=== PATIENT | female | born 1985 | race Caucasian/White ===

== ENCOUNTER 2019-02-27 13:13 | Emergency (ER) | payer OTHER ==
[2019-02-27] MEDS ORDERED: Promethazine HCl 25 MG/ML VIAL ONE (13:41)
[2019-02-27] MEDS ORDERED: Ketorolac Tromethamine 30 MG/ML VIAL ONE (13:41)
[2019-02-27] MEDS ORDERED: Sodium Chloride 0.9% 1,000 ML ONE (13:41)
[2019-02-27] MEDS ORDERED: Meclizine HCl 25 MG TAB ONE (13:41)
--- NOTE | 2019-02-27 13:53 | CT ---
CT BRAIN WITHOUT CONTRAST: HISTORY: Headache, dizziness FINDINGS: No evidence of acute infarct, hemorrhage, midline shift or abnormal extra-axial fluid collections is seen. The ventricular size is appropriate and the basilar cisterns are patent. The bony calvarium is intact. The visualized paranasal sinuses and mastoid air cells are well aerated. IMPRESSION: No CT evidence of acute intracranial process.
== END 2019-02-27 15:18 | disposition home or self-care (01) ==
LOC: MADERS 13:13
DX: H81.399 Other peripheral vertigo, unspecified ear (principal); E03.9 Hypothyroidism, unspecified
CPT/HCPCS: 70450; 96361; 96374; 96375; J1885; J2550; J7050; J8597

== ENCOUNTER 2019-09-13 09:36 | Emergency (ER) | payer OTHER ==
[2019-09-13] MEDS ORDERED: Ondansetron ODT 4 MG TAB ONE (10:38)
[2019-09-13] MEDS ORDERED: Benzonatate 100 MG CAP ONE (10:38)
[2019-09-13] MEDS ORDERED: Oseltamivir 75 MG CAP ONE (10:38)
--- NOTE | 2019-09-13 10:46 | RAD ---
CHEST TWO VIEWS: HISTORY: Productive cough with chills. FINDINGS: Heart size and mediastinum are within normal limits. The lungs are clear of any infiltrative process. No significant bony findings. IMPRESSION: No active intrathoracic disease. POS: [facility]
== END 2019-09-13 10:47 | disposition home or self-care (01) ==
LOC: MADERS 09:36
DX: J11.1 Influenza due to unidentified influenza virus with other respiratory manifestations (principal); R11.2 Nausea with vomiting, unspecified; Z79.899 Other long term (current) drug therapy
CPT/HCPCS: 71046; 87804; Q0162

== ENCOUNTER 2021-08-23 20:22 | Emergency (ER) | payer SELFPAY ==
[2021-08-23 21:08] LABS: Bilirubin Negative (Negative); Blood, Urine Negative (Negative); Clarity Clear (Clear); Glucose, Urine (Dipstick) Negative (Negative); Ketone, Urine Negative (Negative); Leukocyte Negative (Negative); Nitrite Negative (Negative); Protein, Urine (Dipstick) Negative (Neg-Trace); pH, Urine 8.5 (5.0-9.0)
[2021-08-23 21:09] LABS: Pregnancy Test - Urine (BHCG) Negative (Negative); Pregu Control Background? CLEAR/WHITE (CLR/WHITE); Pregu Control Bar Appear? YES (CONTROL BAR)
[2021-08-23] MEDS ORDERED: Acetaminophen 500 MG TAB ONE (21:17)
[2021-08-23] MEDS ORDERED: Lactated Ringer's 1,000 ML ONE (21:17)
[2021-08-23] MEDS ORDERED: Cyclobenzaprine 10 MG TAB ONE (21:17)
[2021-08-23 21:31] LABS: Band 5 % (5-11); Eosinophils 2 % (0-10); Hemoglobin 13.3 g/dL (12.0-16.0); Lymphocytes 18 % (21-51); MDiff Complete? YES; Mean Corpuscular HGB CONC 32.6 g/dL (32.0-36.0); Mean Corpuscular Hemoglobin 27.9 pg (27.0-31.0); Mean Corpuscular Volume 85.5 fL (78.0-98.0); Mean Platelet Volume 7.1 fL (7.4-10.4); Monocytes 8 % (0-10); Neutrophil 65 % (42-75); Platelet Count 225 thou/uL (130-400); Platelet Morphology Comment Appears Adequate; RBC Distribution Width 10.9 % (11.5-14.5); RBC Morphology Normal; Reactive Lymphocytes 2 % (0-10); Red Blood Cell (RBC) Count 4.78 mill/uL (4.20-5.40); White Blood Cell (WBC) Count 4.5 thou/uL (4.8-10.8)
[2021-08-23 21:36] LABS: ALT (SGPT) 27 U/L (8-55); AST (SGOT) 23 U/L (5-34); Alkaline Phosphatase 64 U/L (40-110); Anion Gap 14 mmol/L (10-20); BUN (Urea Nitrogen) 10 mg/dL (7.0-18.7); Bilirubin, Total 0.4 mg/dL (0.2-1.2); Calc. Creatinine Clearance 0 mL/min (70-130); Calcium 8.7 mg/dL (7.8-10.44); Carbon Dioxide 23 mmol/L (22-29); Chloride 104 mmol/L (98-107); Globulin 2.9 g/dL (2.4-3.5); Glucose 138 mg/dL (70-105); Potassium 3.9 mmol/L (3.5-5.1); Protein, Total 6.9 g/dL (6.0-8.3); Sodium 137 mmol/L (136-145)
[2021-08-24 18:31] LABS: SARS-CoV-2 PCR by NAA DETECTED (NotDetected)
== END 2021-08-23 22:36 | disposition home or self-care (01) ==
LOC: MADERS 20:22
DX: U07.1 COVID-19 (principal); R32 Unspecified urinary incontinence; Z79.899 Other long term (current) drug therapy
CPT/HCPCS: 71045; 80053; 81003; 81025; 85025; 87804; 94760; J7120; U0003; U0005